=== PATIENT | female | born 1955 | race Two or more races ===

== ENCOUNTER 2019-03-28 23:05 | Emergency (ER) | payer SELFPAY ==
[~2019-03-28] VITALS: Ht 165.1 cm; Wt 65.8 kg
[2019-03-28] MEDS ORDERED: IV NORMAL SALINE 1000ML BAG 1,000 ML IV ONE (23:30)
[2019-03-28] MEDS ORDERED: ASPIRIN 325 MG TABLET PO ONE (23:30)
[2019-03-28 23:35] LABS: BASO # 0.1 x10^3/uL (0.0-0.2); BASO % 1 % (0-3); EOS # 0.1 x10^3/uL (0.0-0.7); EOS % 2 % (0-3); HEMATOCRIT 41.3 % (36.0-47.0); LYMPH % 21 % (24-48); MEAN CORPUSCULAR HEMOGLOBIN 31 pg (25-35); MEAN CORPUSCULAR HGB CONC 34 g/dL (31-37); MEAN CORPUSCULAR VOLUME 92 fL (79-100); MONO # 0.8 x10^3/uL (0.0-1.1); MONO % 9 % (0-9); NEUT # 6.3 x10^3/uL (1.8-7.7); NEUT % 68 % (31-73); PLATELET COUNT 204 x10^3/uL (140-400); RED BLOOD COUNT 4.49 x10^6/uL (3.50-5.40); RED CELL DISTRIBUTION WIDTH 13.2 % (11.5-14.5); WHITE BLOOD COUNT 9.4 x10^3/uL (4.0-11.0)
[2019-03-28 23:48] LABS: PROTHROMBIN TIME PATIENT 12.2 SEC (11.7-14.0)
[2019-03-28 23:49] LABS: CALCIUM 9.4 mg/dL (8.5-10.1); CREATININE 1.2 mg/dL (0.6-1.0); GFR 45.1; POTASSIUM 3.8 mmol/L (3.5-5.1)
[2019-03-28 23:51] LABS: D-DIMER 0.4 ug/mlFEU (0.00-0.50)
[2019-03-28 23:56] LABS: ALBUMIN 4.2 g/dL (3.4-5.0); ALBUMIN/GLOBULIN RATIO 1.1 (1.0-1.7); MAGNESIUM 1.8 mg/dL (1.8-2.4); TOTAL BILIRUBIN 0.3 mg/dL (0.2-1.0)
[2019-03-29] MEDS ORDERED: FAMOTIDINE 20 MG/2 ML VIAL IVP ONE (00:30)
[2019-03-29] MEDS ORDERED: ONDANSETRON PF 4 MG/2 ML VIAL. IV ONE (00:30)
[2019-03-29 00:43] LABS: BILIRUBIN,URINE NEGATIVE (NEG); CLARITY,URINE CLEAR; COLOR,URINE YELLOW; NITRITE,URINE NEGATIVE (NEG); PH,URINE 7.5; PROTEIN,URINE NEGATIVE (NEG-TRACE); UROBILINOGEN,URINE 0.2 mg/dL (0.2 mg/dL)
[2019-03-29 00:50] LABS: BACTERIA,URINE 0 /HPF (0-FEW); RBC,URINE 0 /HPF (0-2); SQUAMOUS EPITHELIAL CELL,UR FEW /LPF
--- NOTE | 2019-03-29 01:11 | RAD ---
Two-view chest dated 03/29/2019. No comparison available. Clinical data indication: Chest pain. FINDINGS: PA and lateral views obtained. Heart and mediastinal contours are within normal limits. Lungs are somewhat hyperinflated but otherwise clear. No consolidation or pleural effusion. No pneumothorax. IMPRESSION: No acute radiographic abnormality. Electronically signed by: Jeff Herrera MD (03/29/2019 1:09 AM) [facility]
[2019-03-29] MEDS ORDERED: FAMO-63 PO (01:26)
--- NOTE | 2019-03-29 01:26 | PHYS DOC ---
Past Medical History Past Medical History: No Pertinent History Past Surgical History: No Surgical History Alcohol Use: Occasionally Drug Use: None Adult General Chief Complaint Chief Complaint: CHEST PAIN HPI HPI Ms. Garcia is a 63yo Maur[place] F w/ no significant PMH who presents with chest pain. She states that the pain began around 9 PM but is no longer experiencing the pain. Pain does not radiate. She was seated, no strenuous activity or recent trauma, when she started to feel an epigastric burning sensation that went into her chest. Takes an 81 MG aspiring daily but has not taken anything for epigastric burning or chest pain. Reports nausea, vomiting x 2, dizziness, migraine, shortness of breath, and palpitations. Review of Systems Review of Systems Constitutional: Denies fever or chills Eyes: Denies redness or eye pain HENT: Denies nasal congestion or sore throat Respiratory: Reports shortness of breath. Denies cough. Cardiovascular: Reports chest pain and palpitations. GI: Reports burning epigastric abdominal pain, nausea, 2 x vomiting, and destini rrhea. Denies constipation or hematochezia. : Denies dysuria or hematuria Musculoskeletal: Denies back pain or joint pain Integument: Denies rash or skin lesions Neurologic: Reports migraine. Denies focal weakness or sensory changes Complete systems were reviewed and found to be within normal limits, except as documented in this note. Current Medications Current Medications Current Medications Medications (Trade) Dose Ordered Sig/[facility] Start Time Stop Time Status Last Admin Dose Admin Aspirin (Sofiya Aspirin) 325 mg 1X ONCE 03/28/19 23:30 03/28/19 23:31 DC 03/29/19 00:08 325 MG Famotidine (Pepcid Vial) 20 mg 1X ONCE 03/29/19 00:30 03/29/19 00:31 DC 03/29/19 00:43 20 MG Ondansetron HCl (Zofran) 4 mg 1X ONCE 03/29/19 00:30 03/29/19 00:31 DC 03/29/19 00:43 4 MG Sodium Chloride 1,000 ml @ 1,000 mls/hr 1X ONCE 03/28/19 23:30 03/29/19 00:29 DC 03/29/19 00:08 1,000 MLS/HR Allergies Allergies Allergies Coded Allergies Type Severity Reaction Last Updated Verified Iodinated Contrast- Oral and IV Dye Allergy Unknown 03/28/19 Yes Physical Exam Physical Exam Constitutional: Well developed, well nourished, no acute distress, non-toxic appearance HENT: Normocephalic, atraumatic, oropharynx moist Eyes: PERRL, EOMI, conjunctiva normal, no discharge Neck: Normal range of motion, no tenderness, supple, no cervical or supraclavicular LAD Cardiovascular: Heart rate normal, regular rhythm w/o gallops, rubs, or murmurs. UE radial pulses intact 2/4 b/l Lungs & Thorax: Bilateral breath sounds clear to auscultation throughout, no wheezing Abdomen: Soft, no tenderness, non-distended Skin: Warm, dry, no erythema, no rash Back: No tenderness, no CVA tenderness Extremities: No tenderness, ROM intact, no edema Neurologic: Alert and oriented X 3, normal motor function, normal sensory function, no focal deficits noted Psychologic: Affect normal, judgement normal, mood normal Current Patient Data Vital Signs Vital Signs Date Time Temp Pulse Resp B/P (MAP) Pulse Ox O2 Delivery O2 Flow Rate FiO2 03/29/19 00:39 74 17 170/84 (112) Room Air 03/28/19 23:05 98.2 98 98.2 Lab Values Laboratory Tests Test 03/28/19 23:20 03/29/19 00:19 White Blood Count 9.4 x10^3/uL (4.0-11.0) Red Blood Count 4.49 x10^6/uL (3.50-5.40) Hemoglobin 14.0 g/dL (12.0-15.5) Hematocrit 41.3 % (36.0-47.0) Mean Corpuscular Volume 92 fL (79-100) Mean Corpuscular Hemoglobin 31 pg (25-35) Mean Corpuscular Hemoglobin Concent 34 g/dL (31-37) Red Cell Distribution Width 13.2 % (11.5-14.5) Platelet Count 204 x10^3/uL (140-400) Neutrophils (%) (Auto) 68 % (31-73) Lymphocytes (%) (Auto) 21 % (24-48) L Monocytes (%) (Auto) 9 % (0-9) Eosinophils (%) (Auto) 2 % (0-3) Basophils (%) (Auto) 1 % (0-3) Neutrophils # (Auto) 6.3 x10^3/uL (1.8-7.7) Lymphocytes # (Auto) 2.0 x10^3/uL (1.0-4.8) Monocytes # (Auto) 0.8 x10^3/uL (0.0-1.1) Eosinophils # (Auto) 0.1 x10^3/uL (0.0-0.7) Basophils # (Auto) 0.1 x10^3/uL (0.0-0.2) Prothrombin Time 12.2 SEC (11.7-14.0) Prothrombin Time INR 0.9 (0.8-1.1) D-Dimer (Liliana) 0.40 ug/mlFEU (0.00-0.50) Sodium Level 141 mmol/L (136-145) Potassium Level 3.8 mmol/L (3.5-5.1) Chloride Level 103 mmol/L (98-107) Carbon Dioxide Level 28 mmol/L (21-32) Anion Gap 10 (6-14) Blood Urea Nitrogen 16 mg/dL (7-20) Creatinine 1.2 mg/dL (0.6-1.0) H Estimated GFR (Cockcroft-Gault) 45.1 BUN/Creatinine Ratio 13 (6-20) Glucose Level 109 mg/dL (70-99) H Calcium Level 9.4 mg/dL (8.5-10.1) Magnesium Level 1.8 mg/dL (1.8-2.4) Total Bilirubin 0.3 mg/dL (0.2-1.0) Aspartate Amino Transferase (AST) 22 U/L (15-37) Alanine Aminotransferase (ALT) 23 U/L (14-59) Alkaline Phosphatase 87 U/L (46-116) Creatine Kinase 82 U/L (26-192) Creatine Kinase MB (Mass) 1.7 ng/mL (0.0-3.6) Creatine Kinase MB Relative Index 2.1 % (0-4) Troponin I Quantitative < 0.017 ng/mL (0.000-0.055) PK-Stf-S-Type Natriuretic Peptide 104 pg/mL (0-124) Total Protein 8.0 g/dL (6.4-8.2) Albumin 4.2 g/dL (3.4-5.0) Albumin/Globulin Ratio 1.1 (1.0-1.7) Lipase 118 U/L (73-393) Urine Collection Type Unknown Urine Color Yellow Urine Clarity Clear Urine pH 7.5 Urine Specific Jenison 1.010 Urine Protein Negative mg/dL (NEG-TRACE) Urine Glucose (UA) Negative mg/dL (NEG) Urine Ketones (Stick) Negative mg/dL (NEG) Urine Blood Negative (NEG) Urine Nitrite Negative (NEG) Urine Bilirubin Negative (NEG) Urine Urobilinogen Dipstick 0.2 mg/dL (0.2 mg/dL) Urine Leukocyte Esterase Trace (NEG) Urine RBC 0 /HPF (0-2) Urine WBC 1-4 /HPF (0-4) Urine Squamous Epithelial Cells Few /LPF Urine Bacteria 0 /HPF (0-FEW) Urine Mucus Slight /LPF Laboratory Tests 03/28/19 23:20 Laboratory Tests 03/28/19 23:20 EKG EKG EKG obtained @2312 and read @2320. NSR w/o ST-elevation changes noted. 83 BPM.[] Radiology/Procedures Radiology/Procedures [] Course & Med Decision Making Course & Med Decision Making Pertinent Labs and Imaging studies reviewed. (See chart for details) Patient presented w/ chest pain. EKG NSR w/o ST-elevation changes noted. CXR unremarkable per preliminary ED physician read. Troponin negative. D-Dimer negative. Heart Score 0. Patient stable for discharge with outpatient follow-up with PCP. Discussed findings and plan with patient and family, who acknowledge understanding and agreement. [] Dragon Disclaimer Dragon Disclaimer This electronic medical record was generated, in whole or in part, using a voice recognition dictation system. Departure Departure Impression: Primary Impression: Atypical chest pain Disposition: HOME, SELF-CARE Condition: STABLE Referrals: NO PCP (PCP) HUMBERTO HALL MD, SCOTT S MD Patient Instructions: Chest Pain (Nonspecific), [id number], Gastritis, Adult, [id number] Scripts Famotidine (PEPCID) 20 Mg Tablet 20 MG PO BID, #30 TAB Prov: LUCIAN MARTINEZ Onel DO 03/29/19 The HEART Score for CP Pts HEART Score for Chest Pain: HEART Score for Chest Pain Response (Comments) Value History Slighlty/Non-Suspicious 0 Age > 65 2 Risk Factors No Risk Factors 0 Troponin < Normal Limit 0 Total 2 Risk Factors: Risk Factors: none Risk Scores: Score 0 - 3: 2.5% MACE over next 6 weeks - Discharge Home Score 4 - 6: 20.3% MACE over next 6 weeks - Admit for Clinical Observation Score 7 - 10: 72.7% MACE over next 6 weeks - Early Invasive Strategies LUCIAN MARTINEZ DO Mar 29, 2019 01:26
[2019-03-29 01:30] VITALS: BP 152/66
--- NOTE | 2019-03-29 06:40 | EKG ---
[facility] [address] [place] [address] Test Date: 2019-03-28 Test Time: 23:12:58 Pat Name: ASHA STONE Department: Room: Gender: F [employer]: : [id number] Requested By: LUCIAN MARTINEZ Order Number: [id number] Reading MD: Measurements Intervals Cutler Rate: 82 P: 33 [place]: 142 QRS: -23 QRSD: 74 T: 21 QT: 354 QTc: 416 Interpretive Statements SINUS RHYTHM LEFTWARD AXIS CONSIDER LEFT VENTRICULAR HYPERTROPHY POSSIBLY ABNORMAL ECG No previous ECG available for comparison
== END 2019-03-29 01:30 | disposition home or self-care (01) ==
LOC: ER 23:05
DX: R07.89 Other chest pain (principal); R11.2 Nausea with vomiting, unspecified; R42 Dizziness and giddiness; R06.02 Shortness of breath; R00.2 Palpitations; G43.909 Migraine, unspecified, not intractable, without status migrainosus; Z91.041 Radiographic dye allergy status
CPT/HCPCS: 36415; 71046; 80053; 81001; 82553; 83690; 83735; 83880; 84484; 85025; 85379; 85610; 87086; 93005; 96361; 96374; 96375; 99285; J2405; J3490; J7030

== ENCOUNTER 2021-05-24 15:36 | Emergency (ER) | payer MEDICARE, OTHER ==
[~2021-05-24] VITALS: Ht 165.1 cm; Wt 66.8 kg
[~2021-05-24 15:36] MED LIST: FAMO-63 PO
[2021-05-24] MEDS ORDERED: DIPH,PERTUSS(ACELL),TET VAC/PF 0.5 ML SYRINGE. VAX IM ONE (17:00)
[2021-05-24] MEDS ORDERED: LIDOCAINE WITH 8.4% SOD BICARB 3 ML DISP.SYRIN. INJ ONE (17:00)
--- NOTE | 2021-05-24 17:01 | RAD ---
Site ID: [id number] EXAMINATION: XR FINGER(S)_LEFT 2+VIEWS_RT. HISTORY: 65 years Female Reason: pinky finger laceration COMPARISON: None. FINDINGS: There is a soft tissue air seen in the proximal aspect of the left little finger. There are degenerat amy changes seen at the distal interphalangeal joint. There is a suggestion of a detached osteophyte seen dorsally at the base of the distal phalanx away from the soft tissue injury site. This is age in determinate and could relate to an old injury. No definite acute fracture otherwise. No radiopaque fo reign body. No subluxation or dislocation. IMPRESSION: 1. Soft tissue laceration and soft tissue air from proximally in the left little finger. 2. Tiny detached osteophyte seen dorsally at the base of the distal phalanx is favored to be from old injury. If there is focal tenderness at this location, then acute small avulsion could be considered . Electronically signed by: Eliezer Graham MD (05/24/2021 4:58 PM) [id number]
--- NOTE | 2021-05-24 17:22 | PHYS DOC ---
Past Medical History Past Medical History: No Pertinent History Additional Past Medical Histor: RA, osteoporosis Past Surgical History: Appendectomy Smoking Status: Never Smoker Alcohol Use: None Drug Use: None General Adult EDM: Chief Complaint: LACERATION/AVULSION HPI: HPI: Patient is a 65 year old female who presents to the ED today complaining of left pinky finger laceration. Patient accidentally cut herself with a knife paring a potato. Patient is right-handed. Review of Systems: Review of Systems: Constitutional: Denies fever or chills. [] Musculoskeletal: Denies back pain or joint pain. [] Integument: Reports left pinky finger laceration Neurologic: Denies headache, focal weakness or sensory changes. [] Psychiatric: Denies depression or anxiety. [] Heart Score: C/O Chest Pain: N/A Risk Factors: Risk Factors: DM, Current or recent (<one month) smoker, HTN, HLP, family history of CAD, obesity. Risk Scores: Score 0 - 3: 2.5% MACE over next 6 weeks - Discharge Home Score 4 - 6: 20.3% MACE over next 6 weeks - Admit for Clinical Observation Score 7 - 10: 72.7% MACE over next 6 weeks - Early Invasive Strategies Current Medications: Current Medications Medications (Trade) Dose Ordered Sig/[facility] Start Time Stop Time Status Last Admin Dose Admin Diphtheria/ Tetanus/Acell Pertussis (ADACEL TDap SYRINGE) 0.5 ml ONCE ONCE 05/24/21 17:00 05/24/21 17:01 DC 05/24/21 16:49 0.5 ML Lidocaine HCl (Buffered Lidocaine 1%) 3 ml 1X ONCE 05/24/21 17:00 05/24/21 17:01 DC 05/24/21 16:49 3 ML Allergies: Allergies: Allergies Coded Allergies Type Severity Reaction Last Updated Verified Iodinated Contrast Media Allergy Unknown 03/28/19 Yes Physical Exam: PE: Constitutional: Well developed, well nourished, no acute distress, non-toxic appearance. [] Skin: Ventral aspect of the left pinky finger PIP joint with a laceration approximately 1 cm. Patient unable to flex the finger. Adequate ulnar sensation to the left pinky finger. +2 left radial pulse. Cap refill less than 2 seconds to left pinky finger. Back: No tenderness, no CVA tenderness. [] Extremities: No tenderness, no cyanosis, no clubbing, ROM intact, no edema. [] Neurologic: Alert and oriented X 3, normal motor function, normal sensory function, no focal deficits noted. [] Psychologic: Affect normal, judgement normal, mood normal. [] Current Patient Data: Vital Signs: Vital Signs Date Time Temp Pulse Resp B/P (MAP) Pulse Ox O2 Delivery O2 Flow Rate FiO2 05/24/21 16:09 98.4 64 16 153/77 (102) 98 Room Air 98.4 EKG: EKG: [] Radiology/Procedures: Radiology/Procedures: []PROCEDURE: FINGER(S) LEFT Site ID: [id number] EXAMINATION: XR FINGER(S)_LEFT 2+VIEWS_RT. HISTORY: 65 years Female Reason: pinky finger laceration COMPARISON: None. FINDINGS: There is a soft tissue air seen in the proximal aspect of the left little finger. There are degenerative changes seen at the distal interphalangeal joint. There is a suggestion of a detached osteophyte seen dorsally at the base of the distal phalanx away from the soft tissue injury site. This is age indeterminate and could relate to an old injury. No definite acute fracture otherwise. No radiopaque foreign body. No subluxation or dislocation. IMPRESSION: 1. Soft tissue laceration and soft tissue air from proximally in the left little finger. 2. Tiny detached osteophyte seen dorsally at the base of the distal phalanx is favored to be from old injury. If there is focal tenderness at this location, then acute small avulsion could be considered. Electronically signed by: Katherine Graham MD (05/24/2021 4:58 PM) [id number] DICTATED and SIGNED BY: KATHERINE GRAHAM MD DATE: 05/24/21 [id number] Laceration/Wound Repair Wound Location: Left pinky finger Wound's Depth, Shape: Horizontal Wound Length (cm): Approximately 1 cm Wound Explored: clean Irrigated w/ Saline (ccs): 100 Betadine Prep?: Yes Anesthesia: 1% of buffered lidocaine Volume Anesthetic (ccs): Approximately 2 cc Wound Repaired With: Ethilon Suture Size/Type: 5.0/interrupted sutures Number of Sutures: 3 Progress : Wound was covered with nonstick dressing Course & Med Decision Making: Course & Med Decision Making Pertinent Labs and Imaging studies reviewed. (See chart for details) This is a 65-year-old female patient with left pinky finger laceration. Patient unable to flex the finger. Left pinky finger x-rays interpreted by radiologist was negative for an acute fracture, radiologist mentions possible avulsion fracture of the distal phalanx. Patient has no injury to warrant that. Left pinky finger laceration was closed by me as noted in procedures. Tetanus updated. Patient was provided a hand surgeon for follow-up. Tank Disclaimer: Dragon Disclaimer: This electronic medical record was generated, in whole or in part, using a voice recognition dictation system. Departure Departure Impression: Primary Impression: Laceration of left little finger Qualified Codes: S61.317A - Laceration without foreign body of left little finger with damage to nail, initial encounter Disposition: HOME / SELF CARE / HOMELESS Condition: STABLE Referrals: TOPHER HAIR MD (PCP) You have left pinky finger laceration and possible tendon tear. Please contact [facility] hand surgeon tomorrow morning and set up a follow-up appointment. Call [phone] and request an appointment Patient Instructions: Fingertip Laceration Additional Instructions: You have left pinky finger laceration and possible tendon tear. Please contact [facility] hand surgeon tomorrow morning and set up a follow-up appointment. Call [phone] and request an appointment. Keep the laceration site clean and dry. You can apply Neosporin to the area twice a day. Remove the dressing in 24 hours and leave it open to air if its not bleeding or draining. You can wash your hands but do not soak the laceration site. MONICO GALVAN APRN May 24, 2021 17:21
[2021-05-24 17:50] VITALS: BP 139/65
== END 2021-05-24 18:10 | disposition home or self-care (01) ==
LOC: ER 15:36
DX: S61.317A Laceration without foreign body of left little finger with damage to nail, initial encounter (principal); M06.9 Rheumatoid arthritis, unspecified; Z91.041 Radiographic dye allergy status; W26.0XXA Contact with knife, initial encounter; Y93.89 Activity, other specified; Y92.89 Other specified places as the place of occurrence of the external cause; Y99.8 Other external cause status
CPT/HCPCS: 12001; 73140; 90471; 90715; 99283; J3490